=== PATIENT | female | born 1960 | race Caucasian/White ===

== ENCOUNTER 2019-11-09 08:36 | Outpatient (CLI) | payer BC ==
[2019-11-09 09:10] LABS: BASOPHILS # (AUTO) 0.1 X10'3 (0-0.2); BASOPHILS % (AUTO) 0.9 % (0-1); EOSINOPHILS # (AUTO) 0.2 X10'3 (0-0.9); EOSINOPHILS % (AUTO) 2.7 % (0-6); HEMATOCRIT 44.9 % (35.0-45.0); HEMOGLOBIN 15.2 g/dl (12.0-16.0); LYMPHOCYTES # (AUTO) 1.9 X10'3 (1.1-4.8); LYMPHOCYTES % (AUTO) 30.5 % (21-51); MEAN CORPUSCULAR HEMOGLOBIN 30.1 PG (27.0-31.0); MEAN CORPUSCULAR HGB CONC 33.7 g/dL (33.0-36.5); MEAN CORPUSCULAR VOLUME 89.1 FL (78-98); MEAN PLATELET VOLUME 8.5 FL (7.4-10.4); MONOCYTES # (AUTO) 0.2 X10'3 (0-0.9); MONOCYTES % (AUTO) 3.9 % (2-12); NEUTROPHILS # (AUTO) 3.9 X10'3 (1.8-7.7); PLATELET COUNT 241 X10'3 (140-440); RED BLOOD COUNT 5.05 X10'6 (4.20-5.60); RED CELL DISTRIBUTION WIDTH 13.4 % (11.5-14.5); WHITE BLOOD COUNT 6.3 X10'3 (4.5-11.0)
[2019-11-09 09:20] LABS: PARTIAL THROMBOPLASTIN TIME 29 SECONDS (22-32)
[2019-11-09 09:23] LABS: ALANINE AMINOTRANSFERASE 56 U/L (12-78); ALBUMIN 3.7 G/DL (3.4-5.0); ALKALINE PHOSPHATASE 90 IU/L (46-116); ANION GAP 7 (8-16); ASPARTATE AMINO TRANSFERASE 31 U/L (10-37); BILIRUBIN,TOTAL 1.2 MG/DL (0.1-1.0); BLOOD UREA NITROGEN 16 MG/DL (7-18); BUN/CREATININE RATIO 20.5 (6.6-38.0); CALCIUM 8.4 MG/DL (8.5-10.1); CHLORIDE 107 MMOL/L (99-107); CREATININE 0.78 MG/DL (0.40-0.90); GLUCOSE 96 MG/DL (70-104); POTASSIUM 3.9 MMOL/L (3.5-5.1); SODIUM 145 MMOL/L (135-145); TOTAL CARBON DIOXIDE 31.4 MMOL/L (24-32); TOTAL PROTEIN 7.3 G/DL (6.4-8.2); eGFR 76 ML/MIN
[2019-11-09] MEDS ORDERED: RITALIN PO (10:30)
[2019-11-09] MEDS ORDERED: BECL7.3A INH (10:33)
[2019-11-09] MEDS ORDERED: FLUT16SP2 BOTHNARES (10:33)
[2019-11-09 11:46] LABS: PLATELET FUNCTION (ADP) 129 SECONDS (63-104)
== END 2019-11-09 23:59 | disposition home or self-care (01) ==
LOC: LAB 08:36
PROVIDERS: ATTEND Otolaryngology
DX: D69.1 Qualitative platelet defects (principal)
CPT/HCPCS: 36415; 80053; 85025; 85576; 85610; 85730

== ENCOUNTER 2019-11-12 09:34 | Day surgery (SDC) | payer BC ==
[2019-11-12] VITALS (8 sets, daily range): BP systolic 81–143; BP diastolic 47–93
[~2019-11-12] VITALS: Ht 157.5 cm; Wt 78.6 kg
[~2019-11-12 09:34] MED LIST: BECL7.3A INH; FLUT16SP2 BOTHNARES; RITALIN PO; famotidine 10mg tablet PO ONE; ringers solution, lacted 1,000 ML IV SCH
[2019-11-12] MEDS ORDERED: methylPREDNISolone acetate 80mg/ml inj**IM only ONE (14:17)
[2019-11-12] MEDS ORDERED: ketamine 10mg/ml 20ml inj ONE (14:17)
[2019-11-12] MEDS ORDERED: cocaine 4% topical solution 4ml bottle ONE (14:17)
[2019-11-12] MEDS ORDERED: mupirocin 2% ointment 22GM ONE (14:17)
[2019-11-12] MEDS ORDERED: oxymetazoline 15 ML nasal spray NS ONE (14:18)
[2019-11-12] MEDS ORDERED: cefTAZidime 1gm inj ONE (14:18)
[2019-11-12] MEDS ORDERED: triamcinolone acetonide 40mg/ml inj ONE (14:21)
[2019-11-12] MEDS ORDERED: dexamethasone sod phosphate 10mg/ml inj ONE (14:40)
[2019-11-12] MEDS ORDERED: phenylephrine 10mg/ml inj. ONE (14:40)
[2019-11-12] MEDS ORDERED: sevoflurane 250ml liquid IH ONE (14:40)
[2019-11-12] MEDS ORDERED: ePHEDrine 50MG/ML INJ. ONE (14:40)
[2019-11-12] MEDS ORDERED: ondansetron/PF 4mg/2ml inj ONE (14:40)
[2019-11-12] MEDS ORDERED: fentaNYL /PF 50mcg/ml 5ml ampule ONE (14:44)
[2019-11-12] MEDS ORDERED: ringers solution, lacted 1,000 ML IV SCH (15:26)
[2019-11-12] MEDS ORDERED: meperidine/PF 25mg/ml syringe IV PRN ×3 (15:30)
[2019-11-12] MEDS ORDERED: morphine 4 MG/ML inj SYRINge IV PRN ×2 (15:30)
[2019-11-12] MEDS ORDERED: ondansetron/PF 4mg/2ml inj IV PRN (15:30)
[2019-11-12] MEDS ORDERED: proCHLORperazine 10 MG/2 ml inj IV PRN (15:30)
[2019-11-12] MEDS ORDERED: tranexamic acid inj. 1,000 MG in normal saline 100ml IV soln 100 ML IV ONE (16:15)
[2019-11-12] MEDS ORDERED: propofol inj 20 ML IV ONE (16:15)
[2019-11-12] MEDS ORDERED: LIDOcaine 2% (20mg/ml) 5ml vial ONE (16:15)
[2019-11-12] MEDS ORDERED: labetalol 20mg/4ml (5mg/ml) syringe IV ONE (16:15)
[2019-11-12] MEDS ORDERED: hydrALAZINE 20mg/ml inj. IV ONE (16:27)
--- NOTE | 2019-11-12 17:08 | NUR ---
Received from OR via , accompanied by Anesthesiologist DR VANN and report given by Anesthesiolgist. AWAKENS TO VOICE. VITALS STABLE. DRESSINGS DI. ODETTE PAIN.
[2019-11-12] MEDS ORDERED: salt irrigation nasal spray 45 ML SPRAY NS PRN (17:15)
--- NOTE | 2019-11-12 18:18 | NUR ---
AWAKE AND ORIENTED. VITALS STABLE. DRESSINGS DI. ODETTE PAIN. HOME WITH HER SPOUSE AT THIS TIME.
== END 2019-11-12 18:18 | disposition home or self-care (01) ==
LOC: PAS 09:34
PROVIDERS: ATTEND Otolaryngology
DX: J32.9 Chronic sinusitis, unspecified (principal); J34.2 Deviated nasal septum; J33.8 Other polyp of sinus; M95.0 Acquired deformity of nose; G47.33 Obstructive sleep apnea (adult) (pediatric); J45.909 Unspecified asthma, uncomplicated; K21.9 Gastro-esophageal reflux disease without esophagitis; Z72.89 Other problems related to lifestyle; Z98.890 Other specified postprocedural states; Z79.899 Other long term (current) drug therapy; Z88.2 Allergy status to sulfonamides; Z88.5 Allergy status to narcotic agent
CPT/HCPCS: 30465; 30520; 31254; 31288; 61782; 82948; 93005; A6402; C9250; J0360; J0713; J1040; J1100; J2001; J2370; J2405; J2704; J3010; J3301; J7040; J7120; A4618; A7000; J3490